=== PATIENT | male | born 1950 | race Caucasian/White ===

== ENCOUNTER 2019-06-10 05:41 | Emergency (ER) | payer MEDICARE ==
[~2019-06-10] VITALS: Ht 180.3 cm; Wt 113.4 kg
[~2019-06-10 05:41] MED LIST: ACEASPCAF; ALBIPROI INH; ALPR.5 PO; AMOCLA875 PO; AMOX1XR PO; AMOX500 PO; ASPI81CH PO; ATEN100; ATEN50; AZIT250 PO; CHOLESTEROL MED; CLAR500CR PO; CYCL10 PO; DULO60; Fish Oil 10001000 MG PO; HYDACE5 PO; HYDCHL12.5 PO; HYDGUAL120 PO; IBUP800 PO; NAPR500; POTCHL10ER PO; PRED20 PO; Veetids 500500 MG PO; Xanax0.5 MG PO
[2019-06-10] MEDS ORDERED: Zithromax250 MG PO (07:12)
[2019-06-10] MEDS ORDERED: Prednisone20 MG PO (07:12)
== END 2019-06-10 07:31 | disposition home or self-care (01) ==
LOC: ER 05:41
DX: J44.1 Chronic obstructive pulmonary disease with (acute) exacerbation (principal); F43.10 Post-traumatic stress disorder, unspecified; E78.00 Pure hypercholesterolemia, unspecified; Z88.5 Allergy status to narcotic agent; Z88.8 Allergy status to other drugs, medicaments and biological substances; Z79.899 Other long term (current) drug therapy; Z79.82 Long term (current) use of aspirin
CPT/HCPCS: 71046; 94640; 99283-25; J7512

== ENCOUNTER 2021-05-22 07:12 | Emergency (ER) | payer OTHER ==
[~2021-05-22] VITALS: Ht 182.9 cm; Wt 117.0 kg
[~2021-05-22 07:12] MED LIST changes: +Prednisone20 MG PO; +Zithromax250 MG PO
[2021-05-22] MEDS ORDERED: Monodox100 MG PO (08:33)
[2021-05-22] MEDS ORDERED: Bactrim Ds Tab1 EACH PO (08:33)
== END 2021-05-22 08:40 | disposition home or self-care (01) ==
LOC: ER 07:12
DX: L02.415 Cutaneous abscess of right lower limb (principal); J44.9 Chronic obstructive pulmonary disease, unspecified; E78.00 Pure hypercholesterolemia, unspecified; Z88.5 Allergy status to narcotic agent; Z88.8 Allergy status to other drugs, medicaments and biological substances; Z79.82 Long term (current) use of aspirin; Z79.899 Other long term (current) drug therapy
CPT/HCPCS: 99282

== ENCOUNTER 2022-08-04 09:57 | Emergency (ER) | payer OTHER ==
[~2022-08-04] VITALS: Ht 180.3 cm; Wt 115.7 kg
[~2022-08-04 09:57] MED LIST changes: +Bactrim Ds Tab1 EACH PO; +Monodox100 MG PO
[2022-08-04] MEDS ORDERED: Tamiflu75 MG PO (11:04)
[2022-08-04] MEDS ORDERED: CODEINE-GUAIFE120 M1 PO (11:28)
== END 2022-08-04 11:31 | disposition home or self-care (01) ==
LOC: ER 09:57
DX: J06.9 Acute upper respiratory infection, unspecified (principal); B34.9 Viral infection, unspecified; J44.9 Chronic obstructive pulmonary disease, unspecified; Z20.822 Contact with and (suspected) exposure to COVID-19; Z79.899 Other long term (current) drug therapy; Z79.82 Long term (current) use of aspirin
CPT/HCPCS: A9270

== ENCOUNTER 2023-08-09 08:43 | Inpatient (IN) | payer OTHER ==
[~2023-08-09] VITALS: Ht 180.3 cm; Wt 118.9 kg
[~2023-08-09 08:43] MED LIST changes: +CODEINE-GUAIFE120 M1 PO; +Tamiflu75 MG PO
[2023-08-09 09:19] LABS: BASOPHILS ABSOLUTE AUTO 0.09 K/mm3 (0.00-0.23); BASOPHILS PERCENT AUTO 1 % (0-2); EOSINOPHILS ABSOLUTE AUTO 0.14 K/mm3 (0.00-0.68); EOSINOPHILS PERCENT AUTO 2 % (0-6); Hematocrit 45.7 % (37.0-53.0); IMMATURE GRAN ABSOLUTE AUTO 0.03 K/mm3 (0.00-0.10); IMMATURE GRAN PERCENT AUTO 0 % (0-1); LYMPHOCYTES ABSOLUTE AUTO 1.96 K/mm3 (0.84-5.20); LYMPHOCYTES PERCENT AUTO 22 % (21-46); MONOCYTES ABSOLUTE AUTO 0.53 K/mm3 (0.16-1.47); MONOCYTES PERCENT AUTO 6 % (4-13); Mean Corpuscular HGB 30.2 pg (26.0-34.0); Mean Corpuscular HGB Conc 30.6 g/dL (31.5-36.5); Mean Corpuscular Volume 99 fL (80-100); Mean Platelet Volume 12.6 fL (9.1-12.4); NEUTROPHILS ABSOLUTE AUTO 6.24 K/mm3 (1.96-9.15); NEUTROPHILS PERCENT AUTO 69 % (41-73); Platelet Count 208 K/mm3 (150-400); RDW Coefficient Variation 16.4 % (11.7-14.2); RDW Standard Deviation 59.6 fL (35.1-46.3); Red Blood Cell Count 4.63 M/mm3 (4.30-5.90); White Blood Cell Count 8.99 K/mm3 (4.00-11.30)
[2023-08-09] MEDS ORDERED: BUPRENORPHINE HC8 MG SL (09:31)
[2023-08-09] MEDS ORDERED: ALPRAZOLAM110 PO (09:31)
[2023-08-09 09:48] LABS: Magnesium, Blood 1.8 mg/dL (1.6-2.4)
[2023-08-09 09:51] LABS: Albumin, Blood 3.7 g/dL (3.4-5.0); Albumin/Globulin Ratio 1.1 (0.8-1.8); Bilirubin, Total 1.2 mg/dL (0.1-1.0); Calcium, Blood 8.8 mg/dL (8.5-10.1); Globulin, Blood 3.5 g/dL (2.2-4.0); Potassium, Blood 4.3 mmol/L (3.5-5.5); Thyroid Stimulating Hormone 2.47 uIU/mL (0.360-4.800); Total Protein, Blood 7.2 g/dL (6.4-8.2)
[2023-08-09 13:01] VITALS: BP 177/140
[2023-08-09 13:31] VITALS: BP 180/133
[2023-08-09] MEDS ORDERED: VITAMIN B-1100 M1 PO (14:23)
[2023-08-09] MEDS ORDERED: VITAMIN D310 MC4 PO (14:24)
[2023-08-09] MEDS ORDERED: ASCO500 PO (14:25)
[2023-08-09] MEDS ORDERED: GABA100 PO (14:27)
--- NOTE | 2023-08-09 15:57 | NUR ---
PT ADMIT FROM ER. HR INCREASES WITH EXERTION, PT HYPERTENSIVE WITH HR 120-170S. IV LOPPRESSOR ADMINISTERED. DR. NICKERSON AT PT BESIDE TO ASSESS AND DISCUSS PLAN OF CARE. PER MD. GIVE A DOSE OF PO LOPPRESSOR NOW. ALERT AND ORIENTED X4. BLE, BUE, ABDOMEN +3 PITTING EDEMA. PT IS INDEPENDENT IN THE ROOM WITH CANE. 2L NC. R/A BASELINE. USE OF OXYGEN IN THE PAST. URINAL AT BEDSIDE. NASCIMENTO ORDERED IF NEEDED. PT DECLINES NASCIMENTO AT THIS TIME.
[2023-08-09 16:01] VITALS: BP 125/101
--- NOTE | 2023-08-09 17:57 | NUR ---
CALLED TO PT ROOM. PT EXPERIENCING SAME SYMPTOMS THAT BROUGHT HIM IN TO THE HOSPITAL. RAPID HEART BEAT, SOB, OVERALL NOT FEELING WELL. VITALS STABLE. HYPERTENSIVE BUT IMPROVING. INCREASE 3L NC. SPOKE WITH DR. NICKERSON. POSSIBLE ANXIETY ON TOP OF AFIB. TREATED PER EMAR. PT VERBALIZE THAT HE WILL CALL IF NOT FEELING BETTER OR WORSENS. REPORTS DECREASE IN SOB
[2023-08-09 19:49] VITALS: BP 143/76
--- NOTE | 2023-08-10 02:48 | NUR ---
TELEMETRY NOTIFIED BY EMELIA THAT PT HAS HAD A CAOUPLE 2 SEC PAUSES. STRIP UPLOADED. PT IS ASYMPTOMATIC. WILL CONTINUE TO MONITOR.
[2023-08-10 02:55] VITALS: BP 137/112
--- NOTE | 2023-08-10 03:14 | NUR ---
SHIFT SUMMARY PT A&0 X4, CALM AND COOPERATIVE WITH CARE. TELEMETRY: AFIB W/RVR @100-115. PT DID HAVE 2 SECOND BEAT PAUSES AND i WAS NOTIFIED BY TELE. PT IS ASYMPTOMATIC. STRIP UPLOADED TO CHART PER TELE. MONITORING FOR ANY MORE PAUSES. PT IS DIURESING AND VOIDING CLEAR, YELLOW URINE. PT CURRENTLY ON 3L O2 VIA NC, SATS ABOVE 95%. BED KEPT IN LOWEST POSITION WITH CALL LIGHT WITHIN REACH. WILL CONTINUE TO MONITOR.
[2023-08-10 06:25] LABS: BASOPHILS ABSOLUTE AUTO 0.08 K/mm3 (0.00-0.23); BASOPHILS PERCENT AUTO 1 % (0-2); EOSINOPHILS ABSOLUTE AUTO 0.13 K/mm3 (0.00-0.68); EOSINOPHILS PERCENT AUTO 2 % (0-6); Hemoglobin 13.1 g/dL (13.5-17.5); IMMATURE GRAN ABSOLUTE AUTO 0.03 K/mm3 (0.00-0.10); IMMATURE GRAN PERCENT AUTO 0 % (0-1); LYMPHOCYTES ABSOLUTE AUTO 1.53 K/mm3 (0.84-5.20); LYMPHOCYTES PERCENT AUTO 21 % (21-46); MONOCYTES ABSOLUTE AUTO 0.58 K/mm3 (0.16-1.47); MONOCYTES PERCENT AUTO 8 % (4-13); Mean Corpuscular HGB 30.6 pg (26.0-34.0); Mean Corpuscular HGB Conc 32.8 g/dL (31.5-36.5); Mean Platelet Volume 11.9 fL (9.1-12.4); NEUTROPHILS ABSOLUTE AUTO 4.79 K/mm3 (1.96-9.15); NEUTROPHILS PERCENT AUTO 67 % (41-73); Platelet Count 174 K/mm3 (150-400); RDW Coefficient Variation 16.1 % (11.7-14.2); RDW Standard Deviation 55.1 fL (35.1-46.3); Red Blood Cell Count 4.28 M/mm3 (4.30-5.90); White Blood Cell Count 7.14 K/mm3 (4.00-11.30)
[2023-08-10 06:29] LABS: Mean Corpuscular Volume 94 fL (80-100)
[2023-08-10 06:48] LABS: Albumin, Blood 3.4 g/dL (3.4-5.0); Albumin/Globulin Ratio 1.1 (0.8-1.8); Bilirubin, Total 1.4 mg/dL (0.1-1.0); Bun/Creatinine Ratio 17.9 (12.0-20.0); Calcium, Blood 8.8 mg/dL (8.5-10.1); Creatinine, Blood 1.12 mg/dL (0.60-1.20); Globulin, Blood 3.2 g/dL (2.2-4.0); Potassium, Blood 4.4 mmol/L (3.5-5.5); Total Protein, Blood 6.6 g/dL (6.4-8.2)
[2023-08-10 07:49] VITALS: BP 137/85
--- NOTE | 2023-08-10 13:08 | NUR ---
PT IS BEING DIURESSED. HE IS UP USING THE URINAL EVERY FEW MINUTES. HE IS BEING MONITORED ON TELE. WHEN HE EXERTS HIMSELF, HIS HEART RATE JUMPS FROM 90S TO 170S AND BACK DOWN AGAIN. SPOKE WITH DR. NICKERSON, PER MD TREAT WITH PRN FOR HR SUSTAINING >130 FOR 20 MIN, INTERMODAL TRUCK DRIVER UPDATED. PT EDUCATED ON RISK OF FALLING DUE TO CHANGES IN HR. HE UNDERSTANDS BUT RESPECTFULLY DECLINES SBA.
[2023-08-10 14:50] VITALS: BP 127/92
--- NOTE | 2023-08-10 18:30 | NUR ---
PT IS ALERT AND ORIENTED X4. ABLE TO MAKE NEEDS KNOWN. PT DOES BECOME TACHYCARDIC WITH EXERTION BUT WILL SETTLE IN THE 90S WHEN AT REST. MEDICATIONS UPDATED TO HOME DOSE. 2L NC. REPORTS FEELING INCREASINGLY BETTER NOW THAT FLUID IS COMMING OFF. NO ACUTE CHANGES THIS SHIFT. PLAN TO CONTINUE DIURESSING. BED IS IN THE LOWEST POSITION WITH CALL LIGHT IN REACH. PT EDUCATED ON FALL RISK SAFETY. PT VERBALIZES UNDERSTANDING AND WILL CALL WHEN HE FEELS NECESSARY. POLITELY DECLINES SBA WITH AMBULATION.
[2023-08-10 19:23] VITALS: BP 144/108
--- NOTE | 2023-08-10 20:33 | NUR ---
TELEMETRY REPORTED 6 AND 9 BEAT RUN OF V TACH 110-120. PATIENT NOTED STANDING USING URINAL AT BEDSIDE ON LASIX. UP TO 170 HR AND BACK DOWN TO AFIB 98. WCTM.
[2023-08-11 03:06] VITALS: BP 129/93
--- NOTE | 2023-08-11 04:13 | NUR ---
SHIFT SUMMARY PATIENT TACHYCARDIC WITH EXERTION. HAD 6 AND 9 BEAT RUNS OF V-TACH WHEN UP. HR UP TO 170 X ONE AND BACK TO AFIB 90'S WHEN STANDING USING URINAL. ON LASIX. AXOX 4 AND INDEPENDENT. ON 2 O2 NC. VSS/AFEBRILE. DENIES CHEST PAIN, SOB, AND N/V. ROBAXIN 500 MG GIVEN X ONE FOR MUSCLE SPASMS. REPORTS LEFT HAND POACHER OPERATOR WEAK WITH NO POACHER OPERATOR FROM PINCH NERVE FROM MARCH. CALL LIGHT IN REACH. BED IN LOWEST POSITION. WILL CONTINUE TO MONITOR UNTIL DAY SHIFT NURSE ASSUMES CARE.
[2023-08-11 06:15] LABS: Bun/Creatinine Ratio 26.7 (12.0-20.0); Calcium, Blood 8.7 mg/dL (8.5-10.1); Creatinine, Blood 1.01 mg/dL (0.60-1.20); Magnesium, Blood 2.1 mg/dL (1.6-2.4); Phosphorus, Blood 4.1 mg/dL (2.5-4.9); Potassium, Blood 3.6 mmol/L (3.5-5.5)
[2023-08-11 07:51] VITALS: BP 133/101
[2023-08-11 07:52] VITALS: BP 133/101
--- NOTE | 2023-08-11 11:04 | NUR ---
TELE EVENT PER FOOD AND NUTRITION SUPERVISOR REPORT... PT'S HR HAS BEEN SLOWLY CREEPING UP SINCE 0700. BASELINE IS AFIB IN THE 60'S. CURRENTLY 120-140'S. HR INCREASES TO THE 170'S WITH EXERTION BUT DOESN'T SUSTAIN. PATIENT IS ASYMPTOMATIC. IS AWARE.
[2023-08-11 16:05] VITALS: BP 120/95
[2023-08-11 16:07] VITALS: BP 118/84
--- NOTE | 2023-08-11 17:32 | NUR ---
SHIFT SUMMARY A&OX4, COOPERATIVE WITH CARE, PLEASANT. LBM TODAY. DENIES CP/PRESSURE, DIZZINESS, HEADACHE, OR SOB. TELEMETRY EVENTS - AFIB HR RANGNING FROM 90'S - 170'S R/T EXERTION. PATIENT ASYMPTOMATIC DURING EVENTS. PITTING EDEMA HAS IMPROVED. LUNG SOUNDS DIMINISHED IN THE R LOBES. CONTINUES TO BE ON 2L O2 VIA NC SATTING >95%. KRISHAN ORDERED AN ECHO, BUT ORDERS SHOW THAT IT WAS CANCELED "PER FLOOR REQUEST." PATIENT IS BEING DIURESED WITH LASIX 40 BID. PATIENT REPORTS CRAMPING AND "FEELING DEHYDRATED." CURRENTLY SITTING ON THE SIDE OF THE BED WAITING FOR DINNER. CALL LIGHT WITHIN REACH.
[2023-08-11 20:19] VITALS: BP 114/64
[2023-08-12 04:29] VITALS: BP 136/89
--- NOTE | 2023-08-12 05:00 | NUR ---
Shift Summary Pt tachycardic with exertion when he is standing up to use the urinal, up to around 130 bpm. He had two 5 beat runs of VTACH tonight, asymptomatic. Denies and chest pain or pressure. On 2L O2 NC. Significant urine output t/o most of the night. No c/o of pain pain tonight, but does say some muscles are cramping some. Lungs sound clear bilaterally. Pt is AOx4 and independent in the room.
[2023-08-12 06:00] LABS: BASOPHILS ABSOLUTE AUTO 0.04 K/mm3 (0.00-0.23); BASOPHILS PERCENT AUTO 1 % (0-2); EOSINOPHILS ABSOLUTE AUTO 0.13 K/mm3 (0.00-0.68); EOSINOPHILS PERCENT AUTO 2 % (0-6); Hematocrit 40.6 % (37.0-53.0); Hemoglobin 13.1 g/dL (13.5-17.5); IMMATURE GRAN ABSOLUTE AUTO 0.03 K/mm3 (0.00-0.10); IMMATURE GRAN PERCENT AUTO 1 % (0-1); LYMPHOCYTES ABSOLUTE AUTO 1.59 K/mm3 (0.84-5.20); LYMPHOCYTES PERCENT AUTO 27 % (21-46); MONOCYTES ABSOLUTE AUTO 0.48 K/mm3 (0.16-1.47); MONOCYTES PERCENT AUTO 8 % (4-13); Mean Corpuscular HGB 29.8 pg (26.0-34.0); Mean Corpuscular HGB Conc 32.3 g/dL (31.5-36.5); Mean Corpuscular Volume 93 fL (80-100); Mean Platelet Volume 12.4 fL (9.1-12.4); NEUTROPHILS PERCENT AUTO 62 % (41-73); Platelet Count 176 K/mm3 (150-400); RDW Coefficient Variation 15.9 % (11.7-14.2); RDW Standard Deviation 54.6 fL (35.1-46.3); Red Blood Cell Count 4.39 M/mm3 (4.30-5.90); White Blood Cell Count 5.97 K/mm3 (4.00-11.30)
[2023-08-12 06:17] LABS: Bun/Creatinine Ratio 24.1 (12.0-20.0); Creatinine, Blood 1.12 mg/dL (0.60-1.20); Magnesium, Blood 2.1 mg/dL (1.6-2.4); Phosphorus, Blood 4.1 mg/dL (2.5-4.9); Potassium, Blood 4.4 mmol/L (3.5-5.5)
[2023-08-12 07:24] VITALS: BP 133/90
--- NOTE | 2023-08-12 09:30 | NUR ---
TELEMETRY EVENT AT 0930, PATIENT'S HR JUMPED INTO THE 160'S, DID NOT SUSTAIN. CURRENT HR IS RANGING FROM 80'S - LOW 100'S. NO OTHER EVENT AT THIS TIME.
[2023-08-12 13:01] LABS: Anti-Xa UFH, PHA Monitoring <0.10 IU/mL; International Normalized Ratio 1.18; Prothrombin Time Results 12.3 Sec (9.7-11.5)
[2023-08-12 16:20] VITALS: BP 121/90
--- NOTE | 2023-08-12 16:28 | NUR ---
SHIFT SUMMARY A&OX4, COOPERATIVE WITH CARE. DENIES ANY PAIN, CP/PRESSURE, HEADACHE, DIZZINESS, OR SOB. CURRENTLY ON 1L O2 SATTING IN THE 90'S. REPORTS CHRONIC NUMBNESS OF BILATERAL FEET. AFIB HR RANGING 80'S - 130'S T/O THE DAY. HEPARIN DRIP STARTED WITH RATE OF 15. LASIX 40 BID WILL BE REDUCED TOMORROW. GOOD URINE OUTPUT ALL DAY. ECHO SHOWED EF OF 30-35%. NO ACUTE CHANGES THIS SHIFT. PLAND TO CONTINUE DIURESING FOR THE NEXT 1-2 DAYS AND MONITOR PER DR NICKERSON. PATIENT IS CURRENLTY SITTING ON SIDE OF BED. CALL LIGHT WITHIN REACH.
--- NOTE | 2023-08-12 18:51 | NUR ---
PATIENT'S DAUGHTER GIULIANO CALLED FOR AN UPDATE. SHE STATES THAT PATIENT IS A POOR POOL HAND AND DUE TO THE FACT THAT PATIENT TAKES CARE OF HIS AT HOME, SHE IS WORRIED HE WILL NEED A LOT OF CAREGIVING/HOME HEALTH TYPE HELP. SHE STATED "THE MOST RELIABLE OF THE DAUGHTERS LOVE OUT OF TOWN SO I AM REALLY WORRIED ABOUT HIM GOING HOME AND NOT HAVING HELP." GIULIANO LIVES IN [place] AND NATALIIA LIVES IN [place]. STATES THAT THE DAUGHTER WHO LIVES IN THIS AREA IS UNRELIABLE AND WILL MOST LIKELY NOT BE ABLE TO HELP PATIENT UPON DISHCARGE.
--- NOTE | 2023-08-12 19:09 | NUR ---
PHYSICAL ANTHROPOLOGIST REPORTS THAT PATIENT'S HR WAS BOUNDING BETWEEN 120 AND 150. PATIENT STATED HE COULD FEEL HIS HR AND WAS SLIGHTLY DIZZY, BUT NO OTHER SYMPTOMS. HE IS CURRENTL SUSTAINING UNDER 130.
[2023-08-12 21:28] VITALS: BP 104/75
[2023-08-13 03:06] VITALS: BP 135/85
[2023-08-13 05:00] LABS: BASOPHILS ABSOLUTE AUTO 0.04 K/mm3 (0.00-0.23); BASOPHILS PERCENT AUTO 1 % (0-2); EOSINOPHILS ABSOLUTE AUTO 0.12 K/mm3 (0.00-0.68); EOSINOPHILS PERCENT AUTO 2 % (0-6); Hematocrit 39.6 % (37.0-53.0); Hemoglobin 13.1 g/dL (13.5-17.5); IMMATURE GRAN ABSOLUTE AUTO 0.02 K/mm3 (0.00-0.10); IMMATURE GRAN PERCENT AUTO 0 % (0-1); LYMPHOCYTES ABSOLUTE AUTO 1.75 K/mm3 (0.84-5.20); LYMPHOCYTES PERCENT AUTO 27 % (21-46); MONOCYTES ABSOLUTE AUTO 0.56 K/mm3 (0.16-1.47); MONOCYTES PERCENT AUTO 9 % (4-13); Mean Corpuscular HGB 30.5 pg (26.0-34.0); Mean Corpuscular HGB Conc 33.1 g/dL (31.5-36.5); Mean Corpuscular Volume 92 fL (80-100); Mean Platelet Volume 11.5 fL (9.1-12.4); NEUTROPHILS ABSOLUTE AUTO 3.99 K/mm3 (1.96-9.15); NEUTROPHILS PERCENT AUTO 62 % (41-73); Platelet Count 165 K/mm3 (150-400); RDW Coefficient Variation 15.9 % (11.7-14.2); RDW Standard Deviation 53.5 fL (35.1-46.3); White Blood Cell Count 6.48 K/mm3 (4.00-11.30)
[2023-08-13 05:24] LABS: Alanine Aminotransfer (ALT/SGP 23 U/L (12-78); Albumin, Blood 3.3 g/dL (3.4-5.0); Alk Phos 151 U/L (50-136); Anion Gap 3 mmol/L (6-16); Aspartate Aminotrans (AST/SGOT 24 U/L (12-37); Bilirubin, Total 0.9 mg/dL (0.1-1.0); Blood Urea Nitrogen 26 mg/dL (8-24); Bun/Creatinine Ratio 26.1 (12.0-20.0); CHOL/HDL RATIO 3.3; CO2, Blood 35 mmol/L (21-32); Chloride, Blood 102 mmol/L (98-108); Cholesterol 139 mg/dL (50-200); Globulin, Blood 3.2 g/dL (2.2-4.0); Glomerular Filtration Rate 80 (60-); Glucose, Blood 100 mg/dL (70-99); HDL Cholesterol 42 mg/dL (>39); LDL/HDL RATIO 1.8; Low Density Lipoprotein Chol 77 mg/dL (0-110); Potassium, Blood 4.4 mmol/L (3.5-5.5); Sodium, Blood 140 mmol/L (136-145); Total Protein, Blood 6.5 g/dL (6.4-8.2); Triglycerides 98 mg/dL (30-160); Very Low Density Lipoprot Chol 19 mg/dL (6-32)
--- NOTE | 2023-08-13 06:19 | NUR ---
Shift Summary Pt continued to have significant urine output throughout the night. When ambulating to and from the bathroom he had small runs of V-Tach, a 5 beat run and a 7 beat run. No c/o of chest pain, pressure or dizzyness, asymptomatic. Pt on heparine drip, rate stayed steady at 15 after labs. Pt on 2L O2 maintaning saturation > 95% at rest. Pt does desat briefly into low 80's with exertion, although those readings may be d/t bad signals on the BiOx.
[2023-08-13 07:52] VITALS: BP 116/71
--- NOTE | 2023-08-13 11:01 | NUR ---
T/C FROM DR MIGUEL REQUESTING PERMISION FROM PT TO SHARE INFORMATION WITH MISTYS , HIS SON-IN-LAW. PT VERBALLY GRANTED PERMISION.
[2023-08-13 16:12] VITALS: BP 103/78
--- NOTE | 2023-08-13 17:19 | NUR ---
DAYSHIFT SUMMARY Patient alert & oriented x4. Cardiology assessed patient this AM. Changes to med, continuing Heparin gtt. IV Lasix 40mg given once today, BLE +2 pitting edema. Lung sounds clear. Vitals stable. Will continue plan of care.
[2023-08-13 20:17] VITALS: BP 104/73
[2023-08-14 03:45] VITALS: BP 117/67
--- NOTE | 2023-08-14 04:25 | NUR ---
SHIFT SUMMARY PT A&O X4, CALM AND COOPERATIVE WITH CARE. CURRENTLY ON HEPARIN GTT AT 29.1 ML/HR. TELEMETRY: AFIB W RVR @77. CURRENTLY ON 2L O2 VIA NC WITH SATS ABOVE 95%. PT DENIES ANY CP OR PRESSURE. SOB NOTICED WITH EXERCION. PT IND WITH URINAL AND SBA TO BATHROOM. BED KEPT IN LOWEST POSITION IWTH CALL LIGHT WITHIN REACH. PT CALLS APPROPRAITELY. WILL CONTINUE TO MONITOR UNTIL SHIFT END.
[2023-08-14 05:54] LABS: Hematocrit 41.2 % (37.0-53.0); Hemoglobin 13.2 g/dL (13.5-17.5); Mean Corpuscular HGB 29.7 pg (26.0-34.0); Mean Corpuscular Volume 93 fL (80-100); Mean Platelet Volume 11.8 fL (9.1-12.4); Platelet Count 172 K/mm3 (150-400); RDW Coefficient Variation 15.9 % (11.7-14.2); RDW Standard Deviation 54.8 fL (35.1-46.3); Red Blood Cell Count 4.45 M/mm3 (4.30-5.90); White Blood Cell Count 5.55 K/mm3 (4.00-11.30)
[2023-08-14 06:18] LABS: Bun/Creatinine Ratio 23.9 (12.0-20.0); Calcium, Blood 8.9 mg/dL (8.5-10.1); Creatinine, Blood 1.09 mg/dL (0.60-1.20); Magnesium, Blood 2.3 mg/dL (1.6-2.4); Phosphorus, Blood 3.9 mg/dL (2.5-4.9); Potassium, Blood 4.2 mmol/L (3.5-5.5)
[2023-08-14 07:32] VITALS: BP 102/74
[2023-08-14 16:32] VITALS: BP 104/69
--- NOTE | 2023-08-14 17:00 | NUR ---
PT IS AOX4 AND COOPERATIVE OF CARE. PT HAS BEEN INDEPENDENT IN ROOM AND IS USING URINAL AT BEDSIDE WHILE WE ARE DIURESING HIM. PT CAN MAKE HIS NEEDS KNOWN CALL LIGHT IS WITHIN REACH WILL CONTINUE TO MONITOR.
--- NOTE | 2023-08-14 17:29 | NUR ---
NOTIFIED AT 1425 BY PHARMACY TO STOP HEPRIN DRIP FOR 1 HOUR. IN 1 HR PHARMACY CALLED BACK NO START HEPRIN DRIP PER EMAR ORDERS.
--- NOTE | 2023-08-14 18:36 | NUR ---
CAR AUDIO INSTALLER REPORT A 6 BEAT RUN OF VTACH. PT IS NOT SYMTOMATIC.
[2023-08-14 19:44] VITALS: BP 105/63
[2023-08-14 23:28] LABS: TOTAL CELLS COUNTED 100
[2023-08-14 23:34] LABS: BASOPHILS ABSOLUTE MAN 0.05 K/mm3 (0.00-0.23); BASOPHILS PERCENT MAN 1 % (0-2); EOSINOPHILS ABSOLUTE MAN 0.11 K/mm3 (0.00-0.68); EOSINOPHILS PERCENT MAN 2 % (0-6); LYMPHOCYTES ABSOLUTE MAN 1.66 K/mm3 (0.84-5.20); LYMPHOCYTES PERCENT MAN 29 % (21-46); MONOCYTES ABSOLUTE MAN 0.49 K/mm3 (0.16-1.47); MONOCYTES PERCENT MAN 9 % (4-13); NEUTROPHILS ABSOLUTE MAN 3.27 K/mm3 (1.96-9.15); SEG NEUTROPHILS PERCENT MAN 59 % (41-73)
--- NOTE | 2023-08-15 03:56 | NUR ---
SHIFT SUMMARY PT A&O X4, CALM AND COOPERATIVE WITH CARE. TELEMETRY: PATY Angy RVR @78. DENIES ANY CP OR PRESSURE AT THIS TIME. PT IS IND WITH URINAL IN ROOM AND IS CURRENTLY BEING DIURESED. EDEMA HAS IMPROVED SINCE PREVIOUS SHIFTS. HEPARIN GTT INFUISING AT 27.2 ML/HR. PT CURRENTLY ON 2 L O2 VIA NC WITH O2 SATS ABOVE 95%. NO ACUTE EVENTS OVERNIGHT. BED KEPT IN LOWEST POSITION WITH CALL LIGHT WITHIN REACH. WILL COTNINUE TO MONITOR.
[2023-08-15 04:59] VITALS: BP 125/83
[2023-08-15 06:50] LABS: BASOPHILS ABSOLUTE AUTO 0.05 K/mm3 (0.00-0.23); BASOPHILS PERCENT AUTO 1 % (0-2); EOSINOPHILS ABSOLUTE AUTO 0.09 K/mm3 (0.00-0.68); EOSINOPHILS PERCENT AUTO 2 % (0-6); Hematocrit 41.6 % (37.0-53.0); Hemoglobin 13.4 g/dL (13.5-17.5); IMMATURE GRAN ABSOLUTE AUTO 0.02 K/mm3 (0.00-0.10); IMMATURE GRAN PERCENT AUTO 0 % (0-1); LYMPHOCYTES ABSOLUTE AUTO 1.79 K/mm3 (0.84-5.20); LYMPHOCYTES PERCENT AUTO 32 % (21-46); MONOCYTES ABSOLUTE AUTO 0.48 K/mm3 (0.16-1.47); MONOCYTES PERCENT AUTO 9 % (4-13); Mean Corpuscular HGB 29.8 pg (26.0-34.0); Mean Corpuscular HGB Conc 32.2 g/dL (31.5-36.5); Mean Corpuscular Volume 93 fL (80-100); Mean Platelet Volume 12.3 fL (9.1-12.4); NEUTROPHILS ABSOLUTE AUTO 3.21 K/mm3 (1.96-9.15); NEUTROPHILS PERCENT AUTO 57 % (41-73); Platelet Count 166 K/mm3 (150-400); RDW Coefficient Variation 15.9 % (11.7-14.2); RDW Standard Deviation 54.2 fL (35.1-46.3); Red Blood Cell Count 4.49 M/mm3 (4.30-5.90); White Blood Cell Count 5.64 K/mm3 (4.00-11.30)
[2023-08-15 07:22] LABS: Magnesium, Blood 2.1 mg/dL (1.6-2.4)
[2023-08-15 07:31] LABS: Anion Gap 3 mmol/L (6-16); Blood Urea Nitrogen 27 mg/dL (8-24); Bun/Creatinine Ratio 24.8 (12.0-20.0); CO2, Blood 33 mmol/L (21-32); Calcium, Blood 8.9 mg/dL (8.5-10.1); Chloride, Blood 104 mmol/L (98-108); Creatinine, Blood 1.09 mg/dL (0.60-1.20); Digoxin (Lanoxin) 0.54 ug/mL (0.80-2.00); Glomerular Filtration Rate 73 (60-); Glucose, Blood 99 mg/dL (70-99); Potassium, Blood 4.3 mmol/L (3.5-5.5); Sodium, Blood 140 mmol/L (136-145)
[2023-08-15 08:06] VITALS: BP 95/81
--- NOTE | 2023-08-15 17:17 | NUR ---
NO ACUTE CHANGES PT IS AOX4 AND COOPERATIVE OF CARE. PT HAS BEEN DOING WELL WITH DIURESING. PT IS ABLE TO MAKE NEEDS KNOWN AND IS INDEPENDENT AT BEDSIDE USING URINAL. HEPRIN CONTINUES. GUIDE DOG TRAINER REPORTED PT HAD A [address] NICKERSON IS AWARE PT HAS HAD THESE EVENTS. WILL CONTINUE TO MONITOR.
--- NOTE | 2023-08-15 19:30 | NUR ---
PER SYSTEMS INTEGRATOR RVR @ 160
[2023-08-15 19:51] VITALS: BP 128/80
--- NOTE | 2023-08-15 20:40 | NUR ---
PER AGRICULTURAL TECHNICAL OFFICER 6 BEAT VTACH, PT DENIES CP, BUT REPORTS CAN TELL WHEN HR ELEVATES.
[2023-08-15] MEDS ORDERED: ALPR1 PO (22:35)
[2023-08-16 03:36] VITALS: BP 120/59
[2023-08-16 04:30] LABS: BASOPHILS ABSOLUTE AUTO 0.05 K/mm3 (0.00-0.23); BASOPHILS PERCENT AUTO 1 % (0-2); EOSINOPHILS ABSOLUTE AUTO 0.09 K/mm3 (0.00-0.68); EOSINOPHILS PERCENT AUTO 2 % (0-6); Hematocrit 42.7 % (37.0-53.0); IMMATURE GRAN ABSOLUTE AUTO 0.02 K/mm3 (0.00-0.10); IMMATURE GRAN PERCENT AUTO 0 % (0-1); LYMPHOCYTES ABSOLUTE AUTO 1.72 K/mm3 (0.84-5.20); LYMPHOCYTES PERCENT AUTO 30 % (21-46); MONOCYTES ABSOLUTE AUTO 0.44 K/mm3 (0.16-1.47); MONOCYTES PERCENT AUTO 8 % (4-13); Mean Corpuscular HGB 30.3 pg (26.0-34.0); Mean Corpuscular HGB Conc 32.8 g/dL (31.5-36.5); Mean Corpuscular Volume 92 fL (80-100); Mean Platelet Volume 11.7 fL (9.1-12.4); NEUTROPHILS ABSOLUTE AUTO 3.47 K/mm3 (1.96-9.15); NEUTROPHILS PERCENT AUTO 60 % (41-73); Platelet Count 167 K/mm3 (150-400); RDW Coefficient Variation 15.9 % (11.7-14.2); RDW Standard Deviation 53.8 fL (35.1-46.3); Red Blood Cell Count 4.62 M/mm3 (4.30-5.90); White Blood Cell Count 5.79 K/mm3 (4.00-11.30)
[2023-08-16 04:45] LABS: Bun/Creatinine Ratio 28.9 (12.0-20.0); Calcium, Blood 8.8 mg/dL (8.5-10.1); Creatinine, Blood 0.93 mg/dL (0.60-1.20); Potassium, Blood 4.2 mmol/L (3.5-5.5)
--- NOTE | 2023-08-16 06:00 | NUR ---
SHIFT SUMMARY ADMIT FOR AFIB W/ RVR, EXPERIENCING EPISODE X1 THIS SHIFT OF VTACH PER GAS DISTRIBUTION SUPERVISOR. PT REPORTS HE CAN FEEL RAPID HR. HEPARIN CONTINUED AT CURRENT RATE OF 27.2 ML/HR TO R FA IV. 2L O2 VIA NC IN PLACE, W/ CONTINUOUS BIOX AND TELEMETRY. PT A&OX4, PLEASANT AND COOPERATIVE. INDEP W/ URINAL AND MINIMAL ASSIST W/ CANE TO BATHROOM FOR IV POLE. PT VERY MODEST W/ BATHROOM DUTIES, BUT REPORTS DIARRHEA. PT DECLINED PM COLACE. PT URINATING LARGE AMOUNTS R/T LASIX. 2+ EDEMA TO BLLE. BUPRENORPHINE DOSE TIME CHANGED TO PM INSTEAD OF HS PER PT REQUEST. UNSURE OF DISCHARGE PLANS AT THIS TIME. CALL LIGHT W/IN REACH AND PT USES APPROPRIATELY.
[2023-08-16 08:14] VITALS: BP 118/76
[2023-08-16 17:06] VITALS: BP 109/72
--- NOTE | 2023-08-16 17:23 | NUR ---
DAY SHIFT SUMMARY PT A/OX4. NO ACUTE EVENTS. PT ABLE TO MAKE NEEDS KNOWN. PT CONTINUE ON HEP DRIP WITH NO CHANGES TO RATE TODAY. CONTINUES ON TELE AND CONT BIOX. PT IN AFIB. DR ORTIZ AT BEDSIDE AND DISCUSSED PLAN TO CHANGE FROM HEP DRIP TO ELIQUIS BEFORE DISCHARGE. PT FILLS ALL SCRIPTS AT THE IN WHICH IS NOT OPEN ON THE WEEKEND. PT MAY HAVE TO WAIT UNTIL FRIDAY FOR DC IN ORDER FILL MEDICATIONS UNLESS ALTERNATIVE PHARMACY CAN BE IDENTIFIED. PT ABLE TO MAKE NEEDS KNOWN. PT TOLERATING IV LASIX WITH GOOD URINARY OUTPUT. PT HR INCREASES WITH ACTIVITY AT TIMES. PT DENIES CHEST PAIN WITH AND WITHOUT ACTIVITY. PT IS ON 2L OF O2.
[2023-08-16 19:20] VITALS: BP 105/71
--- NOTE | 2023-08-17 03:02 | NUR ---
FLATWORK FEEDER SUMMARY VSS. ALERT AND ORIENTED X 4. O2 PER NC AT 1L/MIN (WEANING OFF). MED TELE A FIB WITH OCCASIONAL EPISODES OF V TACH. UP AD MIGUEL. VOICED LOSS OF WT HE LOSES FLUIDS RETAINED. NOTE DECREASED S/S SWELLING. DIURESING CONTINUES - SEE MAR FOR DETAILS. HAS BEEN RESTING QUIETLY WITH FEW INTERRUPTIONS. CALL LIGHT IN REACH. NO C/O DISTRESS OF THIS WRITING. WILL CONTINUE TO MONITOR
[2023-08-17 06:02] VITALS: BP 122/97
[2023-08-17 06:03] LABS: Hematocrit 43.4 % (37.0-53.0); Hemoglobin 14.2 g/dL (13.5-17.5); Mean Platelet Volume 11.7 fL (9.1-12.4); Platelet Count 162 K/mm3 (150-400)
[2023-08-17 06:31] LABS: Albumin, Blood 3.3 g/dL (3.4-5.0); Anion Gap 4 mmol/L (6-16); Blood Urea Nitrogen 29 mg/dL (8-24); Bun/Creatinine Ratio 31.6 (12.0-20.0); CO2, Blood 31 mmol/L (21-32); Calcium, Blood 8.9 mg/dL (8.5-10.1); Chloride, Blood 104 mmol/L (98-108); Creatinine, Blood 0.92 mg/dL (0.60-1.20); Glomerular Filtration Rate 89 (60-); Glucose, Blood 94 mg/dL (70-99); Phosphorus, Blood 3.5 mg/dL (2.5-4.9); Potassium, Blood 4.1 mmol/L (3.5-5.5); Sodium, Blood 139 mmol/L (136-145)
[2023-08-17 07:50] VITALS: BP 119/82
[2023-08-17 14:43] VITALS: BP 105/62
[2023-08-17 19:48] VITALS: BP 93/63
--- NOTE | 2023-08-17 19:58 | NUR ---
SHIFT SUMMARY: HAD BRIEF EPISODE OF AFIB RVR WITH HR IN THE 120'S WHILE HE WAS WALKING AROUND HIS ROOM AROUND 1700. HE DENIED CHEST DISCOMFORT AND SOB AT THE TIME, BUT STATED HE COULD FEEL HIS HEART BEATING FASTER. RESOLVED ON ITS OWN AFTER ABOUT 15 MINUTES. ON ROOM AIR, BREATH SOUNDS WITH FAINT CRACKLES IN RLL. USING URINAL, GOOD OUTPUT. GOOD APPETITE. DENIED PAIN OVERALL. 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
--- NOTE | 2023-08-18 04:38 | NUR ---
WOOD LATHE OPERATOR SUMMARY VSS, BP LOW NORMAL. ASYMPTOMATIC. CONTINUES TO DIURESE PER MD ORDERS/MEDS. VOICED HE HAS LOST SOME 40 POUNDS OF WT(FLUIDS) SINCE ADMISSION TO HOSP. AFFECT CHEERFUL. DENIED DISTRESS. HAS BEEN RESTING QUIETLY WITH FEW INTERRUPTIONS. UP AD MIGUEL WITH CANE. CALL LIGHT IN REACH. RAILS UP X 2 FOR SAFETY. WILL CONTINUE TO MONITOR
[2023-08-18 05:21] VITALS: BP 119/68
[2023-08-18 07:28] VITALS: BP 129/64
[2023-08-18 07:29] VITALS: BP 129/64
[2023-08-18 07:30] VITALS: BP 129/64
--- NOTE | 2023-08-18 08:00 | NUR ---
pt laying in bed sat up for po meds and assessment, a/ox4, pleasant and cooperative with care, follows commands well, denies pain at this time, states he's feeling much better than when he came in, and is probably going home today, lungs are clear t/o, resp even and unlabored, no cough noted, hrirr, tele in place running afib per monitor, see strip, 1-2+ edema noted to b/l le, ppp +1, cap refill <3 sec, vs stable, heart rate has been running in the 40 to 50's, will hold dig for now, piv site to rfa site is clear and patent, btx4, abd flat soft nontender, voids without diff, skin c/w/d, bobby jorge, up ad jorge alberto in room, call light in reach.
--- NOTE | 2023-08-18 10:51 | NUR ---
pt went into the bathroom to bath himself, heart rate went up to the 130'3 to 150's while up, administered the dig. call light in reach.
[2023-08-18] MEDS ORDERED: ELIQUIS5 M2 PO (11:22)
[2023-08-18] MEDS ORDERED: DIGOX125 MC1 PO (11:23)
[2023-08-18] MEDS ORDERED: JARDIANCE10 MG PO (11:24)
[2023-08-18] MEDS ORDERED: METO25ER PO (11:25)
[2023-08-18] MEDS ORDERED: ENTRESTO 24 MG1 EACH PO (11:26)
[2023-08-18] MEDS ORDERED: SPIR25 PO (11:26)
[2023-08-18] MEDS ORDERED: FURO40 PO (11:27)
[2023-08-18] MEDS ORDERED: B-1100 M1 PO (11:29)
--- NOTE | 2023-08-18 14:00 | NUR ---
pt has been discharged to home, iv removed intact, tele removed, went over discharge instructions with him, he verbalized understanding. new medications faxed to [facility], left via wheelchair with all his belongings with information systems director in attendence.
== END 2023-08-18 14:05 | disposition home or self-care (01) | DRG 291 ==
LOC: ER 08:43 → MEDS 11:57 → EDBEDREQ 12:26 → MEDS 12:47
PROVIDERS: Emergency Medicine; Internal Medicine; Internal Medicine Cardiovascular Disease; ADMIT Hospitalist
DX: I11.0 Hypertensive heart disease with heart failure (principal); I50.21 Acute systolic (congestive) heart failure; J96.01 Acute respiratory failure with hypoxia; I48.19 Other persistent atrial fibrillation; Z68.41 Body mass index [BMI] 40.0-44.9, adult; G62.9 Polyneuropathy, unspecified; K21.9 Gastro-esophageal reflux disease without esophagitis; E78.5 Hyperlipidemia, unspecified; M54.9 Dorsalgia, unspecified; F43.10 Post-traumatic stress disorder, unspecified; I27.20 Pulmonary hypertension, unspecified; G47.33 Obstructive sleep apnea (adult) (pediatric); E66.01 Morbid (severe) obesity due to excess calories; G89.4 Chronic pain syndrome; F10.90 Alcohol use, unspecified, uncomplicated; F17.210 Nicotine dependence, cigarettes, uncomplicated; Z79.899 Other long term (current) drug therapy; Z88.5 Allergy status to narcotic agent; Z86.79 Personal history of other diseases of the circulatory system; Z88.8 Allergy status to other drugs, medicaments and biological substances
CPT/HCPCS: 36415; 71046; 80048; 80053; 80061; 80069; 80162; 83735; 83880; 84100; 84443; 84484; 85014; 85018; 85025; 85049; 85520; 85610; 85730; 93005; 93010; 93306; 94762; 96374; 96375; 97162; 97530; 99285-25; A9270; J1644; J1940; Q9957